=== PATIENT | female | born 1970 | race Caucasian/White ===

== ENCOUNTER 2020-06-02 12:34 | Outpatient (REF) | payer OTHER, SELFPAY | END 2020-06-02 12:35 | disposition home or self-care (01) | LOC: HO.LAB 12:34 | PROVIDERS: Visit Provider Nurse Practitioner Family | DX: Z13.89 Encounter for screening for other disorder (principal) ==

== ENCOUNTER 2022-04-24 09:05 | Outpatient (REF) | payer SELFPAY ==
[2022-04-24 12:17] LABS: Cholesterol 199 mg/dL; Glucose Fasting 90 mg/dL (60-99); HDL Cholesterol 57 mg/dL; LDL Cholesterol Calculated 123 mg/dl; Triglycerides 98 mg/dL
[2022-04-24 12:40] LABS: Vitamin D 25-OH Total 43.8 ng/mL (>30)
== END 2022-04-24 09:06 | disposition home or self-care (01) ==
LOC: HO.HMGCLDS 09:05
PROVIDERS: PCP Internal Medicine; Visit Provider Internal Medicine
DX: Z00.00 Encounter for general adult medical examination without abnormal findings (principal); G47.9 Sleep disorder, unspecified; N95.1 Menopausal and female climacteric states
CPT/HCPCS: 36415; 80061; 82306; 82947

== ENCOUNTER 2022-08-07 13:02 | Outpatient (AMB) | payer OTHER, SELFPAY ==
--- NOTE | 2022-08-07 13:09 | MHC.PC.OV ---
Vital Signs 08/07/22 13:10 Height 5 ft 2 in Weight 165 lb BMI 30.2 BP 144/80 H Blood Pressure Location Lt brachial Position Sitting Pulse 58 Pulse Source Pulse Oximeter Pulse Oximetry (%) 100 Oxygen Delivery Method Room Air Intake Visit Reasons: left ear follow up Intake Note: Pt is here today to f/u Lt ear, still blocked Allergies No Known Allergies Allergy (Verified 08/07/22 13:27) Medication List - Last Reconciled 08/07/22 by Joanna Wolff MD cholecalciferol (vitamin D3) 25 mcg PO DAILY fluticasone propionate 50 mcg/actuation 1 spray intranasal Q12H 5 days uxrokkpruqck-Pg-ysta-minerals tabs PO Tobacco use date assessed: 08/07/22 HPI left ear follow up HPI Details 52-year-old lady here today complaining of persistent sensation of blockage in her left ear with diminished hearing. She was treated for acute otitis media left ear 06/21/2022 with 10 days of Augmentin and 5 days of prednisone. Patient then returned and was seen at the walk-in clinic 07/15/2022 complaining of persistent sensation of fullness and diminished hearing in left ear , no evidence of infection seen, and was prescribed fluticasone nasal spray and another 5 day course of prednisone at 40 mg daily. At present, she still has decreased hearing in left ear, with sensation fullness still present. Denies any pain, no discharge, no fever, or upper respiratory symptoms reported. [facility] Medical History History of anxiety disorder History of hypertension Otitis media Perimenopause Sleep disturbance Surgical History History of tubal ligation Hx laparoscopic cholecystectomy Family History Father Essential hypertension Mother Generalized anxiety disorder Social History Housing: House Patient Tobacco Use Status: Never used Tobacco e-Cigarette/Vaping Use: Never Used service: No Current occupational status: employed Cognitive needs: No Hearing needs: No Vision needs: No Questionnaire Thrive Questionnaire Date Thrive assessed: 04/24/22 ROBERTA-7 AMB Questionnaire ROBERTA-7 Date ROBERTA - 7 assessed: 04/24/22 Source: Developed by Drs. Edis Gallegos, Carla Lepe, Jacques Figueroa and colleagues, with an educational mihcelle from [employer]. Review of Systems Const All systems reviewed & are unremarkable except as noted in HPI and below Physical exam (Primary Care) Vital Signs: Last Vital Signs Pulse 58 08/07/22 13:10 BP 144/80 H 08/07/22 13:10 Pulse Ox 100 08/07/22 13:10 Oxygen Delivery Method Room Air 08/07/22 13:10 BMI result Body Mass Index 30.2 Tobacco/Smoking Status: Tobacco use Status Tobacco use date assessed 08/07/22 08/07/22 13:14 Patient Tobacco Use Status Never used Tobacco 08/07/22 13:14 e-Cigarette/Vaping Use Never Used 08/07/22 13:14 Thrive Assessment: Date of Thrive Assessment Date Thrive assessed 04/24/22 08/07/22 13:14 Const General: comfortable, no acute distress and alert Orientation/consciousness: patient oriented x3 HENMT Head: Yes normocephalic Ears: TM abnormal erythematous, with loss of landmarks and not mobile on the left Neck Neck: Yes full ROM, Yes no lymphadenopathy and Yes supple Resp Auscultation: clear to auscultation bilaterally Neuro General: patient oriented x3, gait normal, tone normal, moves all extremities and no focal motor deficits Assessment and Plan Assessment & Plan (1) Otitis media: Code(s): H66.90 - Otitis media, unspecified, unspecified ear Qualifiers: Otitis media type: unspecified nonsuppurative Laterality: left Qualified Code(s): H65.92 - Unspecified nonsuppurative otitis media, left ear Plan: Stop using fluticasone nasal spray, prescription sent for ciprofloxacin HC 0.2-1% advised to instill 3 drops to left ear canal twice a day for 7 days, advised to follow-up if after 5 days no improvement of symptoms noted Medications: New ciprofloxacin-hydrocortisone 0.2-1 % instill in left ear canal 3 drps otic (ears) BID 10 mL 0RF 7 days Discontinued fluticasone propionate 50 mcg/actuation administer into each nostril Discontinued Reason: Doctor's Order 1 spray intranasal Q12H 5 days 16 grams 0RF Coding Level of Care Code Est Pt Level 3 (82997) Diagnoses Left non-suppurative otitis media H65.92 Otitis media type: unspecified nonsuppurative Laterality: left
[2022-08-07 13:10] VITALS: BP 144/80; PULSE 58; O2SAT 100; BMI 30.2
== END 2022-08-07 16:26 | disposition home or self-care (01) ==
LOC: HO.HMGC 13:02
PROVIDERS: PCP Internal Medicine; Visit Provider Internal Medicine
DX: H65.92 Unspecified nonsuppurative otitis media, left ear (principal)
CPT/HCPCS: 99213

== ENCOUNTER 2022-08-18 14:45 | Outpatient (REF) | payer OTHER, SELFPAY ==
--- NOTE | ~2022-08-18 | MM_ITS ---
EXAMINATION: MM SCREENING DIGITAL BREAST TOMOSYNTHESIS, BILATERAL CLINICAL INFORMATION: Screening. Asymptomatic. The lifetime risk of breast cancer based on the Tyrer-Cuzick Model is 7%. COMPARISON: Mammography: 02/25/2020, 02/18/2019 TECHNIQUE: Digital breast tomosynthesis is performed in both the craniocaudal and mediolateral oblique views along with computer-aided detection (CAD). Synthesized 2D images are generated from the tomosynthesis. FINDINGS: The breasts are heterogeneously dense, which may obscure small masses (ACR BI-RADS breast composition Category c). There are numerous bilateral punctate and coarse round calcifications in both breasts similar to prior studies. Dermal calcifications are also present. Left breast shows no interval mass or architectural abnormality. The axilla are unremarkable. There is focal nodular asymmetric density suggested retroareolar right breast. Patient will be recalled for additional imaging. MM/MM tomosynthesis screening BI IMPRESSION: Right: -Smooth focal nodular asymmetric density retroareolar breast. Left: -No significant changes from prior exams. ASSESSMENT: BI-RADS 0: Incomplete - Need Additional Imaging Evaluation RECOMMENDATION: 1. Additional views of the right breast (spot CC, spot ML). 2. Targeted ultrasound if warranted after review of the additional views. 3. Radiology department staff will contact the patient for additional imaging. This patient's information was entered into a reminder system with a target due date for their next mammogram.
== END 2022-08-18 14:46 | disposition home or self-care (01) ==
LOC: HO.MAMMO 14:45
PROVIDERS: PCP Internal Medicine; Visit Provider Internal Medicine
DX: Z12.31 Encounter for screening mammogram for malignant neoplasm of breast (principal)
CPT/HCPCS: 77063; 77067

== ENCOUNTER 2022-08-24 08:21 | Outpatient (REF) | payer OTHER, SELFPAY ==
--- NOTE | ~2022-08-24 | MM_ITS ---
EXAMINATION: MM DIAGNOSTIC DIGITAL BREAST TOMOSYNTHESIS, RIGHT US DIAGNOSTIC ULTRASOUND BREAST, RIGHT CLINICAL INFORMATION: Recall from screening for suspected smooth nodular asymmetric density retroareolar right breast. COMPARISON: Mammography: 08/18/2022, 02/25/2020 TECHNIQUE: Digital breast tomosynthesis is performed. 2D images are generated from the tomosynthesis. The following views are obtained: Spot CC, spot ML. Ultrasound right breast is targeted to the retroareolar and periareolar region using grayscale imaging and color Doppler without and with harmonics. FINDINGS: The breasts are heterogeneously dense, which may obscure small masses (ACR BI-RADS breast composition Category c). The additional spot views confirm a 0.6 cm smooth nodule retroareolar right breast. No architectural abnormality. Ultrasound right breast demonstrates a 0.6 cm simple cyst corresponding to the finding on mammography. There is no solid mass or architectural abnormality. Results are discussed with the patient at time of visit. MM/MM tomosynthesis added views R IMPRESSION: -Simple cyst retroareolar right breast corresponding to finding on recent screening mammography. ASSESSMENT: BI-RADS 2: Benign RECOMMENDATION: Routine annual mammography screening. This patient's information was entered into a reminder system with a target due date for their next mammogram.
== END 2022-08-24 08:22 | disposition home or self-care (01) ==
LOC: HO.MAMMO 08:21
PROVIDERS: PCP Internal Medicine; Visit Provider Internal Medicine
DX: N64.89 Other specified disorders of breast (principal)
CPT/HCPCS: 76642; 77061; 77065

== ENCOUNTER 2023-07-16 11:34 | Outpatient (AMB) | payer OTHER, SELFPAY ==
[2023-07-16 11:46] VITALS: BP 130/74; PULSE 60; TEMP 36.8; O2SAT 99; BMI 31.2
--- NOTE | 2023-07-16 11:46 | MHC.OFFWIV ---
Intake Vital Signs 07/16/23 11:46 Height 5 ft 2 in Weight 170 lb 8 oz BMI 31.2 BP 130/74 Blood Pressure Location Lt brachial Position Sitting Pulse 60 Pulse Source Pulse Oximeter Temp 98.2 F Temp Source Oral Pulse Oximetry (%) 99 Oxygen Delivery Method Room Air Intake Visit Reasons: EST/right ankle pain (lobby) Intake Note: pt is here today for rt ankle pain started 2.5 weeks ago. Can't put pressure on it. Patient does have an ankle brace that supports it. Patient Tobacco Use Status: Never used Tobacco Allergies No Known Allergies Allergy (Verified 07/16/23 11:46) Do you need a note to return to daycare/school/sports/work: Yes HPI EST/right ankle pain (lobby) HPI Details 52 year old female patient presents today with right ankle pain x2-3 weeks. She reports that she walks daily for exercise and a few weeks ago developed pain on the anterior aspect of her right ankle. Denies any acute injury. Denies any swelling or warmth of the foot/ankle. She has been wearing an otc brace with some benefit. Dorsiflexion of foot and ambulation is painful. [facility] Medical History Otitis media Sleep disturbance Perimenopause History of hypertension History of anxiety disorder Surgical History History of tubal ligation Hx laparoscopic cholecystectomy Family History Father Essential hypertension Mother Generalized anxiety disorder Social History Housing: House Patient Tobacco Use Status: Never used Tobacco e-Cigarette/Vaping Use: Never Used service: No Current occupational status: employed Cognitive needs: No Hearing needs: No Vision needs: No Review of Systems Const All systems reviewed & are unremarkable except as noted in HPI and below Physical Exam Vital Signs: Last Vital Signs Temp 98.2 F 07/16/23 11:46 Pulse 60 07/16/23 11:46 BP 130/74 07/16/23 11:46 Pulse Ox 99 07/16/23 11:46 Oxygen Delivery Method Room Air 07/16/23 11:46 BMI result Body Mass Index 31.2 Const General: cooperative and no acute distress Skin General skin exam: no rashes or lesions noted Extrem Right lower extremity: ankle (no warmth, no tenderness to palp) Details: normal to inspection, no edema and abnormal ROM Details: pain with active ROM Details: with dorsiflexion and pain with passive ROM Details: with dorsiflexion Psych Appearance: grossly normal Mental Status: mental status grossly normal Speech and movement: Normal speech and movement present Assessment & Plan Assessment & Plan (1) Acute right ankle pain: Code(s): M25.571 - Pain in right ankle and joints of right foot Plan: Patient sent for XR of her right ankle - aside from some calcaneal spurring I do not see anything acute. No fractures. I discussed this with patient and we reviewed conservative measures to take for her discomfort, including continuing to wear the compression brace as this has been providing her some comfort. Also reviewed ice, elevation, and NSAID use. I will start her on a short course of Meloxicam to see if this helps. Reviewed indications, use, possible s/e. If she does not improve with time and conservative measures, she can contact PCP and may benefit from ortho referral. She agrees to plan. Orders: Orders XR ankle RT 2V Today M25.571 - Pain in right ankle and joints of right foot Medications: New meloxicam 15 mg PO DAILY 7 tabs 0RF 7 days M25.571 - Pain in right ankle and joints of right foot Coding Level of Care Code Est Pt Level 3 (95284) Diagnoses Acute right ankle pain M25.571
== END 2023-07-16 13:47 | disposition home or self-care (01) ==
PROVIDERS: PCP Internal Medicine; Visit Provider Nurse Practitioner Family
DX: M25.571 Pain in right ankle and joints of right foot (principal)
CPT/HCPCS: 99213

== ENCOUNTER 2023-07-16 13:21 | Outpatient (REF) | payer OTHER, SELFPAY | END 2023-07-16 13:22 | disposition home or self-care (01) | LOC: HO.HMGCX 13:21 | PROVIDERS: PCP Internal Medicine; Visit Provider Nurse Practitioner Family | DX: M25.571 Pain in right ankle and joints of right foot (principal) | CPT/HCPCS: 73600 ==

== ENCOUNTER 2023-08-23 14:54 | Outpatient (REF) | payer OTHER, SELFPAY ==
--- NOTE | ~2023-08-23 | MM_ITS ---
EXAMINATION: MM SCREENING DIGITAL BREAST TOMOSYNTHESIS, BILATERAL CLINICAL INFORMATION: Screening. Asymptomatic. COMPARISON: Mammography: This study is compared with prior exams dating back to 2019. TECHNIQUE: Digital breast tomosynthesis is performed in both the craniocaudal and mediolateral oblique views along with computer-aided detection (CAD). Synthesized 2D images are generated from the tomosynthesis. FINDINGS: The breasts are heterogeneously dense, which may obscure small masses (ACR BI-RADS breast composition Category c). There are no significant masses, abnormal calcifications, or other abnormalities. Scattered, bilateral, benign calcifications are present. MM/MM tomosynthesis screening BI IMPRESSION: No mammographic evidence of malignancy. ASSESSMENT: BI-RADS BI-RADS 2 - Benign Findings RECOMMENDATION: Routine annual mammography screening. 1 year F/U This examination should not preclude the clinical evaluation of a suspicious palpable abnormality. This patient's information was entered into a reminder system with a target due date for their next mammogram.
== END 2023-08-23 14:55 | disposition home or self-care (01) ==
LOC: HO.MAMMO 14:54
PROVIDERS: PCP Internal Medicine; Visit Provider Internal Medicine
DX: Z12.31 Encounter for screening mammogram for malignant neoplasm of breast (principal)
CPT/HCPCS: 77063; 77067

== ENCOUNTER → 2023-08-23 15:00 | Outpatient (BNV) | payer OTHER, SELFPAY | PROVIDERS: PCP Internal Medicine; Visit Provider Radiology Diagnostic Radiology | DX: Z12.31 Encounter for screening mammogram for malignant neoplasm of breast (principal) | CPT/HCPCS: 77063; 77067 ==

== ENCOUNTER 2024-01-21 07:36 | Outpatient (REF) | payer OTHER, SELFPAY ==
[2024-01-21 10:14] LABS: Hematocrit 44.1 % (37.0-47.0); Hemoglobin 14.4 g/dl (12.0-16.0)
[2024-01-21 10:50] LABS: Cholesterol 216 mg/dL (<200); Glucose Fasting 90 mg/dL (60-99); HDL Cholesterol 51 mg/dL (>40); LDL Cholesterol Calculated 135 mg/dL (<100); Triglycerides 152 mg/dL (<150)
[2024-01-21 10:52] LABS: Vitamin D 25-OH Total 66.3 ng/mL (>30)
== END 2024-01-21 07:37 | disposition home or self-care (01) ==
LOC: HO.HMGCLDS 07:36
PROVIDERS: PCP Internal Medicine; Visit Provider Internal Medicine
DX: Z00.01 Encounter for general adult medical examination with abnormal findings (principal); N95.1 Menopausal and female climacteric states; Z13.1 Encounter for screening for diabetes mellitus; Z13.220 Encounter for screening for lipoid disorders
CPT/HCPCS: 36415; 80061; 82306; 82947; 85014; 85018

== ENCOUNTER 2024-01-29 12:25 | Outpatient (AMB) | payer OTHER, SELFPAY ==
[2024-01-29 12:28] VITALS: BP 134/84; PULSE 46; O2SAT 99; BMI 30.9
--- NOTE | 2024-01-29 12:28 | A.OFFPC_ITS ---
Vital Signs 01/29/24 12:28 Height 5 ft 2 in Weight 169 lb BMI 30.9 BP 134/84 Blood Pressure Location Lt brachial Position Sitting Pulse 46 L Pulse Source Pulse Oximeter Pulse Oximetry (%) 99 Oxygen Delivery Method Room Air Intake Visit Reasons: PE/DCF paperwork to be signed Intake Note: Pt is here today for PE. Pt last pap was in Aug 2022 in [facility]. Allergies No Known Allergies Allergy (Verified 01/29/24 12:43) Medication List - Last Reconciled 01/29/24 by Joanna Wolff MD cholecalciferol (vitamin D3) 25 mcg PO DAILY pvgujlhviqkl-Xw-salf-minerals tabs PO Tobacco use date assessed: 01/29/24 Dental Screening Dental Screen Date: 01/29/24 Did you have a dental visit in the last 12 months?: Yes Did you have a dental problem in the last 6 months where you did not have access to dental care?: No Was dental information given to patient?: Patient has dentist HPI PE/DCF paperwork to be signed HPI Details 53-year-old lady here today for physical exam. She goes to [facility] for her routine Pap and pelvic exam, last done a year ago, with normal findings per patient. Up-to-date with her screening mammogram done earlier this year at [facility]. Has not had her colon cancer screening yet, but does not want to do the procedure, wanting to do Cologuard testing instead. Currently in the process of having custody for 2 grandchildren , requesting DC of papers to be completed. [facility] Medical History (Updated 02/04/24 @ 01:02 by Joanna Wolff MD) Bradycardia Sleep disturbance History of hypertension History of anxiety disorder Surgical History History of tubal ligation Hx laparoscopic cholecystectomy Family History Father Essential hypertension Mother Generalized anxiety disorder Social History Housing: House Patient Tobacco Use Status: Never used Tobacco e-Cigarette/Vaping Use: Never Used service: No Current occupational status: employed Cognitive needs: No Hearing needs: No Vision needs: No Questionnaire PHQ-9 Over the last 2 weeks, how often have you been bothered by any of the following problems? 1. Little interest or pleasure in doing things: not at all 2. Feeling down, depressed, or hopeless: not at all 3. Trouble falling or staying asleep, or sleeping too much: not at all 4. Feeling tired or having little energy: not at all 5. Poor appetite or overeating: not at all 6. Feeling bad about yourself - or that you are a failure or have let yourself or your family down: not at all 7. Trouble concentrating on things, such as reading the newspaper or watching television: not at all 8. Moving or speaking so slowly that other people could have noticed. Or the opposite - being so fidgety or restless that you have been moving around a lot more than usual: not at all 9. Thoughts that you would be better off or of hurting yourself in some way: not at all Total score: 0 Depression Screening Interpretation: Negative Depression Screening Done: Yes 78222 - PHQ-9 Billing: Yes Source: Developed by Drs. Edis Gallegos, Carla Lepe, Jacques Figueroa and colleagues, with an educational michelle from [employer]. Thrive Questionnaire Date Thrive assessed: 01/29/24 I am a: Patient What is your living situation today?: I have a steady place to live Within the past 12 months, did the food you bought not last and you didn't have the money to get more?: Never true Within the past 12 months, did you worry whether your food would run out before you got money to buy more?: Never true Do you have trouble paying for medicines?: No Do you have trouble getting transportation to medical appointments?: No Do you have trouble paying your heating and electricity bill?: No Do you have trouble taking care of your child, family member or friend?: No Do you have trouble with day-to-day activities such as bathing, preparing meals, shopping, managing finances, etc.?: No Are you currently unemployed and looking for a job?: No Are you interested in more education?: No Currently or been in a relationship where the following occur: No concerns reported THRIVE Score: 0 AUDIT C Alcohol Use Questionnaire (AUDIT-C) 1. How often do you have a drink containing alcohol?: 2-4 times a month 2. How many drinks containing alcohol do you have on a typical day when you are drinking?: 3 or 4 3. How often do you have six or more drinks on one occasion?: Never Total Score: 3 ROBERTA-7 AMB Questionnaire ROBERTA-7 Date ROBERTA - 7 assessed: 01/29/24 Feeling nervous, anxious, or on edge: 0 = Not at all Not being able to stop or control worryin = Not at all Worrying too much about different things: 0 = Not at all Trouble relaxin = Not at all Being so restless that it is hard to sit still: 0 = Not at all Becoming easily annoyed or irritable: 0 = Not at all Feeling afraid as if something awful might happen: 0 = Not at all Total ROBERTA-7 score (0-4 normal; 5-9 mild; 10-14 moderate; 15-21 severe): 0 Source: Developed by Drs. Edis Gallegos, Carla Lepe, Jacques Figueroa and colleagues, with an educational michelle from [employer]. ROBERTA-7 Assessment Billing ROBERTA-7 Assessment Tool: ROBERTA-7 Assessment 63371 Review of Systems Const Denies body aches, Denies fatigue, Denies fever(s), Denies headache(s) and De nies weakness Eyes Denies change in vision ENT Denies dizziness, Denies headache(s) and Denies nasal congestion Card Denies chest pain, Denies lightheadedness, Denies palpitations and Denies dyspnea Resp Denies chest congestion, Denies cough, Denies dyspnea and Denies wheezing GI Denies abdominal pain, Denies change in bowel habits and Denies heartburn Denies hematuria, Reports change in libido, Denies urinary frequency, Reports dyspareunia, Denies dysuria, Denies urinary urgency and Reports vaginal dryness Musc Reports no additional complaints Skin/Breast Denies breast pain, Denies breast mass, Denies lesions and Denies rash Neuro Denies dizziness, Denies headache(s) and Denies weakness Psych Reports no additional complaints and Reports change in libido Endo Reports change in libido, Denies fatigue, Denies polydipsia, Denies polyuria and Denies palpitations Akhil/Lymph Denies easy bruising Aller/Immun Denies seasonal rhinorrhea and Denies wheezing Physical exam (Primary Care) Vital Signs: Last Vital Signs Pulse 46 L 01/29/24 12:28 BP 134/84 01/29/24 12:28 Pulse Ox 99 01/29/24 12:28 Oxygen Delivery Method Room Air 01/29/24 12:28 BMI result Body Mass Index 30.9 BMI Assessment/Plan discussion: High BMI High, discussed plan: weight reduction, dietary and physical activity Tobacco/Smoking Status: Tobacco use Status Tobacco use date assessed 01/29/24 01/29/24 12:33 Patient Tobacco Use Status Never used Tobacco 01/29/24 12:33 e-Cigarette/Vaping Use Never Used 01/29/24 12:33 PHQ-9: PHQ-9 Score PHQ-9: Total score 0 01/29/24 13:01 Depression Screening Interpretation: Negative Thrive Assessment: Date of Thrive Assessment Date Thrive assessed 01/29/24 01/29/24 12:33 Currently or been in a relationship where the following occur: No concerns reported Const Other: Alert oriented x3, no acute distress noted ambulatory with normal gait Nutritional Appearance: overweight Orientation/consciousness: patient oriented x3 HENMT Head: Yes normocephalic Ears: external ears normal, TM's normal bilaterally and EAC's normal General nose exam: Normal external nose present Face and sinus: Yes face symmetric Mouth: Normal oral and palatal mucosa present and moist mucous membranes Eyes General: appearance normal, both eyes and all related structures Neck Neck: Yes full ROM, Yes no lymphadenopathy and Yes supple Thyroid: Thyroid normal Chest Chest palpation & inspection: normal inspection of the chest Breast/axilla inspection: normal inspection of the breasts Breast/axilla palpation: normal palpation of the breasts Resp Effort & Inspection: normal respiratory effort and able to speak in complete sentences Auscultation: clear to auscultation bilaterally Cardio Other: S1-S2 present regular rate and rhythm, no murmurs Bruits: no abdominal aortic bruits GI Inspection: Yes normal to inspection Palpation (GI): No Abdominal aortic bruit present, Soft to palpation, nontender, no guarding and no masses Auscultation: normal bowel sounds General: Yes no CVA tenderness and Yes deferred Back/Spine/Pelvis Back: no CVA tenderness and No back tenderness Skin General skin exam: no rashes or lesions noted Neuro General: patient oriented x3, gait normal, tone normal, moves all extremities, Normal light touch and pain sensation, no focal motor deficits, CN's II-XI intact bilaterally and normal sensation to monofilament Extrem General: Yes normal to inspection, Yes full ROM, Yes no joint enlargement, Yes no clubbing, cyanosis or edema, Yes no calf tenderness and Yes normal gait Psych Appearance: grossly normal and well kempt Mental Status: mental status grossly normal Speech and movement: Normal speech and movement present Affect: normal affect Attitude: cooperative Thought process: Normal thought process present Results Reviewed Results Reviewed: Laboratory Tests 01/21/24 07:42 Hgb 14.4 Hct 44.1 Name: Shelley Cisneros Age/Sex: 53/F : 1970 Unit#: [id number] Attend Dr: Joanna Wolff MD Re01/21/24 Status: DEP REF Location: [facility] Disch: SPEC : [id number] UBALDO: 01/21/24 STATUS: COMP REQ : [id number] RECD: 01/21/[address]: Joanna Wolff MD COMP: 01/21/24 ENTERED: 01/21/[address]: ORDERED: Glu Fasting, Lipid Panel, Vitamin D 25-OH Test Result Flag Reference FBS 90 60-99 mg/dL Triglyceride 152 H <150 mg/dL Desirable Triglyceride: less than 150 mg/dL Borderline High Triglyceride 150-199 mg/dL High Triglyceride: 200-499 mg/dL Very High Triglyceride: greater than or equal to 5OO mg/dL Cholesterol 216 H <200 mg/dL Desirable Cholesterol: less than 200 mg/dL Borderline High Cholesterol: 200-239 mg/dL High Cholesterol: greater than 239 mg/dL LDL Calculated 135 H <100 mg/dL Desirable LDL: less than 100 mg/dL Near Optimal/Above Optimal LDL: 110-129 mg/dL Borderline High LDL: 130-159 mg/dL High LDL: 160-189 mg/dL Very High LDL: greater than or equal to 190 mg/dL HDL 51 >40 mg/dL Desirable HDL: greater than 40 mg/dL Note: This HDL assay may give artificially low results in patients with liver disease. Vit D 25-OH Tot 66.3 >30 ng/mL Health Based Reference Values* < 20 ng/mL Deficient 20-30 ng/mL Insufficient > 30 ng/mL Sufficient Assessment and Plan Assessment & Plan (1) Annual visit for general adult medical examination with abnormal findings: Code(s): Z00.01 - Encounter for general adult medical examination with abnormal findings Plan: Reviewed recent fasting lab results with patient. LDL cholesterol elevated, recommended adherence to healthy eating habits, getting regular exercise.. Continue regular dental visit every 6 months and regular eye exams, at least every 2 years. Take adequate calcium in diet and vitamin-D 3 at 2000 IU per cap once a day, in addition to weight-bearing exercises to help maintain good muscle tone and weight control. Instructed to do self-breast exam, and continue with yearly mammogram, up-to-date. Declined colonoscopy procedure but willing to do Cologuard testing for colon cancer screening, ordered . Does not want to get COVID vaccination or flu shot, up-to-date with Tdap. DCF form completed today and given back to patient currently in the process of getting custody for 2 grandchildren. (2) Postmenopausal syndrome: Code(s): N95.1 - Menopausal and female climacteric states Plan: Prescription sent for Estrace vaginal cream, to use sparingly to affected area 3 times a week (3) Colon cancer screening: Code(s): Z12.11 - Encounter for screening for malignant neoplasm of colon Plan: Cologuard test ordered (4) Bradycardia: Code(s): R00.1 - Bradycardia, unspecified Plan: Currently asymptomatic Orders: Referrals Cologuard Test Z12.11 - Encounter for screening for malignant neoplasm of colon, Z12.12 - Encounter for screening for malignant neoplasm of rectum Medications: New estradiol 0.01%(0.1mg/gram) (Estrace) 1 g vaginal 3XW 42.5 grams 0RF N95.1 - Menopausal and female climacteric states Coding Level of Care Code Est Pt Prev Care 40-64y(02836) Diagnoses Annual visit for general adult medical examination with abnormal findings Z00. Postmenopausal syndrome N95.1 Colon cancer screening Z12.11 Bradycardia R00.1 Additional Codes ROBERTA-7 Assessment Billing - ROBERTA-7 Assessment Tool: ROBERTA-7 Assessment [id number] ([id number])
== END 2024-01-29 13:15 | disposition home or self-care (01) ==
PROVIDERS: PCP Internal Medicine; Visit Provider Internal Medicine
DX: Z00.00 Encounter for general adult medical examination without abnormal findings (principal); N95.1 Menopausal and female climacteric states; Z12.11 Encounter for screening for malignant neoplasm of colon; R00.1 Bradycardia, unspecified
CPT/HCPCS: 99396

== ENCOUNTER 2024-08-28 15:04 | Outpatient (REF) | payer OTHER, SELFPAY | END 2024-08-28 15:05 | disposition home or self-care (01) | LOC: HO.MAMMO 15:04 | PROVIDERS: PCP Internal Medicine; Visit Provider Internal Medicine | DX: Z12.31 Encounter for screening mammogram for malignant neoplasm of breast (principal) | CPT/HCPCS: 77063; 77067 ==

== ENCOUNTER → 2024-08-28 15:15 | Outpatient (BNV) | payer OTHER, SELFPAY | PROVIDERS: PCP Internal Medicine; Visit Provider Internal Medicine | DX: Z12.31 Encounter for screening mammogram for malignant neoplasm of breast (principal) | CPT/HCPCS: 77063; 77067 ==

== ENCOUNTER 2025-02-03 09:23 | Outpatient (AMB) | payer OTHER, SELFPAY ==
[2025-02-03 09:28] VITALS: BP 128/80; PULSE 50; O2SAT 98; BMI 31.3
--- NOTE | 2025-02-03 09:28 | A.OFFPC_ITS ---
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: No Post menopausal: Yes Allergies No Known Allergies Allergy (Verified 02/03/25 10:12) Medication List - Last Reconciled 02/03/25 by Joanna Wolff MD cholecalciferol (vitamin D3) 25 mcg PO DAILY estradiol 0.01%(0.1mg/gram) (Estrace) 1 g vaginal 3XW khnporlwxyzm-Xn-qhhx-minerals tabs PO Tobacco use date assessed: 02/03/25 Dental Screening Dental Screen Date: 02/03/25 Did you have a dental visit in the last 12 months?: Yes Did you have a dental problem in the last 6 months where you did not have access to dental care?: No Was dental information given to patient?: Patient has dentist HPI Annual PE HPI Details 54-year-old lady here today for physical exam. She goes to [facility] for routine Pap and pelvic exam, with last cervical cancer screening done in 2022 showed benign findings . Has vaginal dryness, currently using estradiol vaginal cream 3 times a week which has not been helping. Menopausal symptoms began approximately two years ago, characterized by weight gain, night sweats, and loss of libido, reports a significant decrease in sexual interest and satisfaction since menopause onset. - She had a Cologuard done last year, 2023, which came back with negative results. -complaining for rash which started thre e months ago , described as a scaly, dry skin at the back of the neck, is itchy and persistent despite changing shampoos and her moisturizers. - Preventative care includes a recent ma mmogram and a Cologuard test which came back with negative results. [facility] Medical History (Updated 02/03/25 @ 10:33 by Joanna Wolff MD) Vaginal dryness during intercourse Loss of libido Bradycardia Sleep disturbance History of hypertension History of anxiety disorder Surgical History History of tubal ligation Hx laparoscopic cholecystectomy Family History Father Essential hypertension Mother Generalized anxiety disorder Social History Housing: House Patient Tobacco Use Status: Never used Tobacco e-Cigarette/Vaping Use: Never Used service: No Current occupational status: employed Cognitive needs: No Hearing needs: No Vision needs: No Female Reproductive History Menstrual Menopause type: natural Other: Goes to [facility] Questionnaire PHQ-9 Over the last 2 weeks, how often have you been bothered by any of the following problems? 1. Little interest or pleasure in doing things: not at all 2. Feeling down, depressed, or hopeless: not at all 3. Trouble falling or staying asleep, or sleeping too much: not at all 4. Feeling tired or having little energy: not at all 5. Poor appetite or overeating: not at all 6. Feeling bad about yourself - or that you are a failure or have let yourself or your family down: not at all 7. Trouble concentrating on things, such as reading the newspaper or watching television: not at all 8. Moving or speaking so slowly that other people could have noticed. Or the opposite - being so fidgety or restless that you have been moving around a lot more than usual: not at all 9. Thoughts that you would be better off or of hurting yourself in some way: not at all Total score: 0 Depression Screening Interpretation: Negative Depression Screening Done: Yes 19712 - PHQ-9 Billing: Yes Source: Developed by Drs. Edis Gallegos, Carla Lepe, Jacques Figueroa and colleagues, with an educational michelle from [employer]. Thrive Questionnaire Date Thrive assessed: 02/03/25 I am a: Patient What is your living situation today?: I have a steady place to live Within the past 12 months, did the food you bought not last and you didn't have the money to get more?: Never true Within the past 12 months, did you worry whether your food would run out before you got money to buy more?: Never true Do you have trouble paying for medicines?: No Do you have trouble getting transportation to medical appointments?: No Do you have trouble paying your heating and electricity bill?: No Do you have trouble taking care of your child, family member or friend?: No Do you have trouble with day-to-day activities such as bathing, preparing meals, shopping, managing finances, etc.?: No Are you currently unemployed and looking for a job?: No Are you interested in more education?: No Please select the resources that you would like help with: None Currently or been in a relationship where the following occur: No concerns reported THRIVE Score: 0 AUDIT C Alcohol Use Questionnaire (AUDIT-C) 1. How often do you have a drink containing alcohol?: Monthly or less 2. How many drinks containing alcohol do you have on a typical day when you are drinking?: 1 or 2 3. How often do you have six or more drinks on one occasion?: Less than monthly Total Score: 2 Score Reviewed/Action Taken: Yes ROBERTA-7 AMB Questionnaire ROBERTA-7 Date ROBERTA - 7 assessed: 02/03/25 Feeling nervous, anxious, or on edge: 0 = Not at all Not being able to stop or control worryin = Not at all Worrying too much about different things: 0 = Not at all Trouble relaxin = Not at all Being so restless that it is hard to sit still: 0 = Not at all Becoming easily annoyed or irritable: 0 = Not at all Feeling afraid as if something awful might happen: 0 = Not at all Total ROBERTA-7 score (0-4 normal; 5-9 mild; 10-14 moderate; 15-21 severe): 0 Source: Developed by Drs. Edis Gallegos, Carla Lepe, Jacques Figueroa and colleagues, with an educational michelle from [employer] [facility]. ROBERTA-7 Assessment Billing ROBERTA-7 Assessment Tool: ROBERTA-7 Assessment 99403 Review of Systems Const Reports as per HPI, Denies body aches, Denies fatigue, Denies fever(s), Denies headache(s) and Denies weakness Eyes Denies change in vision ENT Denies dizziness, Denies headache(s) and Denies nasal congestion Card Denies chest pain, Denies lightheadedness, Denies palpitations and Denies dyspnea Resp Denies chest congestion, Denies cough, Denies dyspnea and Denies wheezing GI Denies abdominal pain, Denies change in bowel habits and Denies heartburn Reports as per HPI, Denies hematuria, Denies urinary frequency, Reports dyspareunia, Denies dysuria, Denies urinary urgency and Reports vaginal dryness Musc Reports no additional complaints Skin/Breast Reports as per HPI, Denies breast pain and Denies breast mass Neuro Denies dizziness, Denies headache(s) and Denies weakness Psych Reports no additional complaints Endo Denies fatigue, Denies polydipsia, Denies polyuria and Denies palpitations Akhil/Lymph Denies easy bruising Aller/Immun Denies seasonal rhinorrhea and Denies wheezing Physical exam (Primary Care) Vital Signs: Last Vital Signs Pulse 50 02/03/25 09:28 BP 128/80 02/03/25 09:28 Pulse Ox 98 02/03/25 09:28 BMI result Body Mass Index 31.3 BMI Assessment/Plan discussion: High BMI High, discussed plan: weight reduction, dietary and physical activity Tobacco/Smoking Status: Tobacco use Status Tobacco use date assessed 02/03/25 02/03/25 09:31 Patient Tobacco Use Status Never used Tobacco 02/03/25 09:29 e-Cigarette/Vaping Use Never Used 02/03/25 09:29 PHQ-9: PHQ-9 Score PHQ-9: Total score 0 02/03/25 10:36 Depression Screening Interpretation: Negative Thrive Assessment: Date of Thrive Assessment Date Thrive assessed 02/03/25 02/03/25 09:31 Currently or been in a relationship where the following occur: No concerns reported Const Other: Alert oriented x3, no acute distress noted ambulatory with normal gait Nutritional Appearance: overweight HENMT Head: Yes normocephalic Ears: external ears normal, TM's normal bilaterally and EAC's normal General nose exam: Normal external nose present Face and sinus: Yes face symmetric Mouth: Normal oral and palatal mucosa present and moist mucous membranes Eyes General: appearance normal, both eyes and all related structures Neck Neck: Yes full ROM, Yes no lymphadenopathy and Yes supple Thyroid: Thyroid normal Chest Chest palpation & inspection: normal inspection of the chest Breast/axilla inspection: normal inspection of the breasts Breast/axilla palpation: normal palpation of the breasts Resp Effort & Inspection: normal respiratory effort and able to speak in complete sentences Auscultation: clear to auscultation bilaterally Cardio Other: S1-S2 present regular rate and rhythm, no murmurs Bruits: no abdominal aortic bruits GI Inspection: Yes normal to inspection Palpation (GI): No Abdominal aortic bruit present, Soft to palpation, nontender, no guarding and no masses Auscultation: normal bowel sounds General: Yes no CVA tenderness and Yes deferred Back/Spine/Pelvis Back: no CVA tenderness and No back tenderness Skin Other: Slightly raised erythematous lesions on posterior neck just below hairline extending to lower scalp Neuro General: gait normal, tone normal, moves all extremities, Normal light touch and pain sensation, no focal motor deficits, CN's II-XI intact bilaterally and normal sensation to monofilament Extrem General: Yes normal to inspection, Yes full ROM, Yes no joint enlargement, Yes no clubbing, cyanosis or edema, Yes no calf tenderness and Yes normal gait Psych Appearance: grossly normal and well kempt Mental Status: mental status grossly normal Speech and movement: Normal speech and movement present Affect: normal affect Coding Level of Care Code Est Pt Prev Care 40-64y(57316) Diagnoses Annual visit for general adult medical examination with abnormal findings Z00.01 Rash of neck R21 Loss of libido R68.82 Vaginal dryness during intercourse N89.8 Postmenopausal status Z78.0 Vasomotor symptoms due to menopause N95.1 Additional Codes ROBERTA-7 Assessment Billing - ROBERAT-7 Assessment Tool: ROBERTA-7 Assessment 67002 ([id number]) PHQ-9 - 62219 - PHQ-9 Billing: Yes ([id number]) Assessment & Plan Assessment & Plan (1) Annual visit for general adult medical examination with abnormal findings: Code(s): Z00.01 - Encounter for general adult medical examination with abnormal findings (2) Rash of neck: Code(s): R21 - Rash and other nonspecific skin eruption (3) Loss of libido: Code(s): R68.82 - Decreased libido Category: Medical (4) Vaginal dryness during intercourse: Code(s): N89.8 - Other specified noninflammatory disorders of vagina Category: Medical (5) Postmenopausal status: Code(s): Z78.0 - Asymptomatic menopausal state (6) Vasomotor symptoms due to menopause: Code(s): N95.1 - Menopausal and female climacteric states Plan The patient will continue with vitamin D supplementation and dietary calcium intake for bone health. A low-dose estrogen/progesterone therapy has been initiated to address menopausal symptoms, including loss of libido and night sweats. The patient is advised to discontinue the use of the cream previously prescribed for vaginal dryness and discomfort. For eczema-like symptoms, a low-dose steroid cream has been prescribed with instructions to apply for no more than 10 days. If symptoms persist, a referral to a patient observer will be considered. The patient is encouraged to continue daily walking and consider incorporating weight training to enhance bone health and overall fitness. Preventative care measures include regular mammograms and Cologuard tests, with the next Cologuard test scheduled for 2026. She goes to [facility] for her routine Pap and pelvic exam, last done August 2022 with benign findings. Follow-up blood work will be conducted to monitor cholesterol levels, liver function, and hormone levels, including estrogen, to ensure they remain within the postmenopausal range. She is up-to-date with her shingles vaccination and Tdap but does not want to get a flu shot or get COVID vaccines Patient was informed and verbally consented to the use of an ambient scribe for clinic note documentation during this visit. Orders: Orders TSH reflex Free T4 02/03/25 N89.8 - Other specified noninflammatory disorders of vagina, N95.1 - Menopausal and female climacteric states, R68.82 - Decreased libido, Z13.1 - Encounter for screening for diabetes mellitus, Z13.220 - Encounter for screening for lipoid disorders, Z78.0 - Asymptomatic menopausal state Follicle Stimulating Hormone 02/03/25 N89.8 - Other specified noninflammatory disorders of vagina, N95.1 - Menopausal and female climacteric states, R68.82 - Decreased libido, Z13.1 - Encounter for screening for diabetes mellitus, Z13.220 - Encounter for screening for lipoid disorders, Z78.0 - Asymptomatic menopausal state Complete Blood Count Auto Diff 02/03/25 N89.8 - Other specified noninflammatory disorders of vagina, N95.1 - Menopausal and female climacteric states, R68.82 - Decreased libido, Z13.1 - Encounter for screening for diabetes mellitus, Z13.220 - Encounter for screening for lipoid disorders, Z78.0 - Asymptomatic menopausal state Basic Metabolic Panel Fasting 02/03/25 N89.8 - Other specified noninflammatory disorders of vagina, N95.1 - Menopausal and female climacteric states, R68.82 - Decreased libido, Z13.1 - Encounter for screening for diabetes mellitus, Z13.220 - Encounter for screening for lipoid disorders, Z78.0 - Asymptomatic menopausal state Aspartate Amino Transferase 02/03/25 N89.8 - Other specified noninflammatory disorders of vagina, N95.1 - Menopausal and female climacteric states, R68.82 - Decreased libido, Z13.1 - Encounter for screening for diabetes mellitus, Z13.220 - Encounter for screening for lipoid disorders, Z78.0 - Asymptomatic menopausal state Alanine Aminotransferase 02/03/25 N89.8 - Other specified noninflammatory disorders of vagina, N95.1 - Menopausal and female climacteric states, R68.82 - Decreased libido, Z13.1 - Encounter for screening for diabetes mellitus, Z13.220 - Encounter for screening for lipoid disorders, Z78.0 - Asymptomatic menopausal state Lipid Panel 02/03/25 N89.8 - Other specified noninflammatory disorders of vagina, N95.1 - Menopausal and female climacteric states, R68.82 - Decreased libido, Z13.1 - Encounter for screening for diabetes mellitus, Z13.220 - Encounter for screening for lipoid disorders, Z78.0 - Asymptomatic menopausal state Vitamin D 25-OH Total 02/03/25 N89.8 - Other specified noninflammatory disorders of vagina, N95.1 - Menopausal and female climacteric states, R68.82 - Decreased libido, Z13.1 - Encounter for screening for diabetes mellitus, Z13.220 - Encounter for screening for lipoid disorders, Z78.0 - Asymptomatic menopausal state Estradiol Ultra Sensitive 02/03/25 N89.8 - Other specified noninflammatory disorders of vagina, N95.1 - Menopausal and female climacteric states, R68.82 - Decreased libido, Z13.1 - Encounter for screening for diabetes mellitus, Z13.220 - Encounter for screening for lipoid disorders, Z78.0 - Asymptomatic menopausal state Referrals Dermatology Referral R21 - Rash and other nonspecific skin eruption Medications: New Prempro 0.3-1.5 mg (conj estrog-medroxyprogest lisa) 1 tab PO DAILY 28 tabs 2RF 1 month NS N89.8 - Other specified noninflammatory disorders of vagina, N95.1 - Menopausal and female climacteric states, R68.82 - Decreased libido triamcinolone acetonide 0.025% 1 appl topical DAILY 15 grams 0RF 10 days R21 - Rash and other nonspecific skin eruption Discontinued estradiol 0.01%(0.1mg/gram) Discontinued Reason: Doctor's Order 1 g vaginal 3XW 42.5 grams 1RF N95.1 - Menopausal and female climacteric states
== END 2025-02-03 10:39 | disposition home or self-care (01) ==
LOC: HO.HMCC 09:24
PROVIDERS: PCP Internal Medicine; Visit Provider Internal Medicine
DX: Z00.01 Encounter for general adult medical examination with abnormal findings (principal); R21 Rash and other nonspecific skin eruption; R68.82 Decreased libido; N89.8 Other specified noninflammatory disorders of vagina; Z78.0 Asymptomatic menopausal state; N95.1 Menopausal and female climacteric states

== ENCOUNTER 2025-02-03 09:23 | Outpatient (REF) | payer OTHER, SELFPAY ==
[2025-02-03 13:11] LABS: MANUAL DIFF FLAG NO
[2025-02-03 13:29] LABS: Hematocrit 43.2 % (37.0-47.0); Hemoglobin 14.0 g/dl (12.0-16.0); Imm Gran Abs Auto 0.01 X10*3/uL (0.00-0.03); Imm Gran Pct Auto 0.2 % (0.0-0.4); Lymphocytes Absolute Auto 1.7 X10*3/uL (1.2-4.9); Mean Corpuscular HGB Conc 32.4 g/dl (31.0-35.0); Mean Corpuscular Hemoglobin 29.1 pg (27.0-33.0); Mean Corpuscular Volume 89.8 fL (80.0-98.0); NRBC Abs Auto 0.000 X10*3/uL (0.0-0.012); NRBC Pct Auto 0.0 /100WBC (0.0-0.2); Platelet Count 233 X10*3/uL (160-400); Red Blood Count 4.81 X10*6/uL (4.20-5.50); White Blood Count 4.6 X10*3/uL (4.8-10.8)
[2025-02-03 13:45] LABS: Alanine Aminotransferase 21 U/L (0-31); Anion Gap 11 (12-20); Aspartate Amino Transferase 32 U/L (5-31); Blood Urea Nitrogen 14 mg/dL (9-16); Calcium 9.0 mg/dL (8.4-10.2); Carbon Dioxide 27 mmol/L (22-29); Chloride 107 mmol/L (96-108); Cholesterol 206 mg/dL (<200); Estimated Glomerular Filt Rate > 60; HDL Cholesterol 54 mg/dL (>40); Potassium 4.4 mmol/L (3.3-5.1); Sodium 141 mmol/L (135-145); Triglycerides 109 mg/dL (<150)
[2025-02-04 14:58] LABS: Follicle Stimulating Hormone 90.4 mIU/mL
[2025-02-15 08:38] LABS: Estradiol Ultra Sensitive 17 pg/mL
== END 2025-02-03 09:24 | disposition home or self-care (01) ==
LOC: HO.HMGCLDS 09:23
PROVIDERS: PCP Internal Medicine; Visit Provider Internal Medicine
DX: Z00.01 Encounter for general adult medical examination with abnormal findings (principal); R21 Rash and other nonspecific skin eruption; R68.82 Decreased libido; N89.8 Other specified noninflammatory disorders of vagina; N95.1 Menopausal and female climacteric states; Z13.220 Encounter for screening for lipoid disorders; Z13.1 Encounter for screening for diabetes mellitus
CPT/HCPCS: 36415; 80048; 80061; 82306; 82670; 83001; 84443; 84450; 84460; 85025; 96127; 99396